=== PATIENT | male | born 2005 | race Caucasian/White ===

== ENCOUNTER 2025-03-22 11:42 | Emergency (ER) | payer OTHER ==
[2025-03-22] MEDS: Diphtheria,Pertussis(Acell),Tetanus Vaccine 0.5 ML Syringe IM ONE (13:55)
== END 2025-03-22 14:22 | disposition home or self-care (01) ==
LOC: JP.ED 11:42
DX: S62.664A Nondisplaced fracture of distal phalanx of right ring finger, initial encounter for closed fracture (principal); W20.8XXA Other cause of strike by thrown, projected or falling object, initial encounter; Z23 Encounter for immunization
CPT/HCPCS: 73130-26-RT; 73130-RT; 90471; 90715; 99283; 99283-25